=== PATIENT | female | born 2000 | race Caucasian/White ===

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

== ENCOUNTER 2023-08-23 07:57 | Emergency (ER) | payer OTHER ==
[2023-08-23 08:10] VITALS: BMI 25.2
[2023-08-23] MEDS ORDERED: IBUPROFEN 400 MG TABLET (FP) PO ONE (08:20)
[2023-08-23] MEDS ORDERED: ACETAMINOPHEN 500 MG TABLET (FP) ONE (08:20)
[2023-08-23] MEDS: IBUPROFEN 400 MG TABLET (FP) PO ONE (08:22)
[2023-08-23] MEDS: ACETAMINOPHEN 500 MG TABLET (FP) PO ONE (08:23)
[2023-08-23 09:25] VITALS: BP 111/62; RESP 25; TEMP 101.8
[2023-08-23 09:29] VITALS: PULSE 114
== END 2023-08-23 09:26 | disposition home or self-care (01) ==
LOC: JERFT 07:57 → JER 07:57 → JERFT 09:26
DX: R50.9 Fever, unspecified (principal); R09.81 Nasal congestion; R52 Pain, unspecified; J10.1 Influenza due to other identified influenza virus with other respiratory manifestations; Z20.822 Contact with and (suspected) exposure to COVID-19
CPT/HCPCS: 0241U-QW; 99283-25

== ENCOUNTER 2023-10-24 05:53 | Emergency (ER) | payer OTHER ==
[2023-10-24 05:59] VITALS: RESP 18; BMI 25.2
[2023-10-24] MEDS ORDERED: ONDANSETRON 4 MG/2 ML VIAL ONE (06:48)
[2023-10-24] MEDS ORDERED: ACETAMINOPHEN INJECTION 100 ML IVPB ONE (06:48)
[2023-10-24] MEDS: ONDANSETRON 4 MG/2 ML VIAL IVPUSH ONE (06:56)
[2023-10-24] MEDS: ACETAMINOPHEN 1000 MG/100 ML BAG IVPB ONE (06:56)
[2023-10-24] MEDS: SODIUM CHLORIDE 0.9% 1000 ML INFUS.BAG IV STA (06:56)
[2023-10-24 07:48] LABS: VENOUS BASE EXCESS -1.8 mmol/L (-2-2); VENOUS O2 SATURATION 59.3 % (70-80); VENOUS PH 7.403 (7.310-7.410)
[2023-10-24 07:50] LABS: HEMATOCRIT 36.9 % (32.4-45.2); HEMOGLOBIN 12.4 GM/dL (10.7-15.3); MCH 28.2 pg (25.7-33.7); MCHC 33.7 g/dl (32.0-36.0); MEAN CELL VOLUME 83.6 fl (80-96); MEAN PLT VOLUME 9.1 fl (7.5-11.1); PLATELET COUNT 218 10^3/uL (134-434); RBC 4.41 M/mm3 (3.60-5.2); RDW 13.6 % (11.6-15.6); WHITE BLOOD COUNT 22.5 K/mm3 (4.0-10.0)
[2023-10-24 07:54] LABS: INR 1.25 (0.83-1.09); PROTHROMBIN TIME (PATIENT) 14.3 SEC (9.7-13.0)
[2023-10-24 07:57] LABS: ACTIVATED PTT 31.2 SECONDS (25.2-36.5)
[2023-10-24 08:15] LABS: POTASSIUM 3.1 mmol/L (3.5-5.1)
[2023-10-24 08:17] LABS: CALCIUM 8.7 mg/dL (8.5-10.1)
[2023-10-24 08:18] LABS: BLOOD UREA NITROGEN 6.1 mg/dL (7-18)
[2023-10-24 08:21] LABS: CREATININE 0.7 mg/dL (0.55-1.3)
[2023-10-24 08:22] LABS: TOT PROT 7.9 g/dl (6.4-8.2)
[2023-10-24 08:42] LABS: ANISOCYTOSIS 0; MACROCYTOSIS 0
[2023-10-24 08:49] LABS: EPI CELLS 21 /uL (0-25.1); HYALINE CASTS 0 /uL (0-3.1); PH,URINE 5.5 (5.0-8.0); URINE APPEARANCE CLEAR; URINE BACTERIA 9 /uL (0-1359); URINE BILIRUBIN NEGATIVE (NEGATIVE); URINE COLOR YELLOW; URINE GLUCOSE (UA) NEGATIVE (NEGATIVE); URINE KETONE TRACE (NEGATIVE); URINE LEUK ESTERASE NEGATIVE (NEGATIVE); URINE NITRITE NEGATIVE (NEGATIVE); URINE PROTEIN NEGATIVE (NEGATIVE); URINE RBC 11 /uL (0-23.9); URINE UROBILINOGEN 0.2 mg/dL (0.2-1.0); URINE WBC 11 /uL (0-25.8)
[2023-10-24] MEDS ORDERED: KETOROLAC TROMETHAMINE 30 MG/1 ML VIAL ONE (09:32)
[2023-10-24] MEDS: KETOROLAC TROMETHAMINE 30 MG/1 ML VIAL IVPUSH ONE (09:40)
[2023-10-24 10:27] VITALS: PULSE 99
[2023-10-24] MEDS: LACTATED RINGERS SOLUTION 1,000 ML/1,000 ML INFUS.BAG IV SCH (10:36)
[2023-10-24] MEDS ORDERED: AMOX TR/POT CLAV 875MG/125MG TABLETS (FP) ONE (10:47)
[2023-10-24] MEDS: AMOX TR/POT CLAV 875MG/125MG TABLETS (FP) PO ONE (10:51)
[2023-10-24 12:15] VITALS: BP 103/66
[2023-10-24 12:24] VITALS: TEMP 99.1
== END 2023-10-24 12:25 | disposition home or self-care (01) ==
LOC: JER 05:53
PROC: 3E033GC Introduction of Other Therapeutic Substance into Peripheral Vein, Percutaneous Approach (ICD-10-PCS; principal; 2023-10-24)
PROC: 3E033NZ Introduction of Analgesics, Hypnotics, Sedatives into Peripheral Vein, Percutaneous Approach (ICD-10-PCS; 2023-10-24)
PROC: 3E0333Z Introduction of Anti-inflammatory into Peripheral Vein, Percutaneous Approach (ICD-10-PCS; 2023-10-24)
DX: R10.31 Right lower quadrant pain (principal); K52.9 Noninfective gastroenteritis and colitis, unspecified; R11.2 Nausea with vomiting, unspecified; R50.9 Fever, unspecified; Z20.822 Contact with and (suspected) exposure to COVID-19
CPT/HCPCS: 0241U-QW; 36415; 71045-TC-FY; 74177-TC; 80053; 81003; 82803; 83605; 84484; 84703; 85025; 85610; 85730; 86850; 86900; 86901; 87040; 87045; 87046; 87086; 87205; 87324; 87449; 93005; 93010; 99285-25; J0131; Q9967